=== PATIENT | female | born 1935 | race Caucasian/White ===

== ENCOUNTER 2017-12-24 14:11 | Outpatient (CLI) | payer MEDICARE | END 2017-12-24 14:12 | disposition home or self-care (01) | LOC: BICULT 14:11 | PROVIDERS: ATTEND Internal Medicine Geriatric Medicine | DX: R22.1 Localized swelling, mass and lump, neck (principal) | CPT/HCPCS: 76999; 93880 ==

== ENCOUNTER 2019-01-15 11:03 | Inpatient (IN) | payer MEDICARE, OTHER ==
[2019-01-15 12:02] LABS: #Lymphocytes 2.1 thou/uL (1.20-3.40); #Monocytes 0.6 thou/uL (0.11-0.59); #Neutrophils 9.8 thou/uL (1.40-6.50); %Basophils 0.4 % (0.0-1.0); %Eosinophils 0.2 % (0.0-10.0); %Lymphocytes 16.4 % (21.0-51.0); Hemoglobin 12.5 g/dL (12.0-16.0); Mean Corpuscular HGB CONC 33.4 g/dL (32.0-36.0); Mean Corpuscular Hemoglobin 29.9 pg (27.0-31.0); Mean Corpuscular Volume 89.7 fL (78.0-98.0); Mean Platelet Volume 7.1 fL (7.4-10.4); Platelet Count 228 thou/uL (130-400); Red Blood Cell (RBC) Count 4.17 mill/uL (4.20-5.40); White Blood Cell (WBC) Count 12.6 thou/uL (4.8-10.8)
[2019-01-15 12:19] LABS: ALT (SGPT) 19 U/L (8-55); AST (SGOT) 17 U/L (5-34); Albumin 4.2 g/dL (3.4-4.8); Alkaline Phosphatase 70 U/L (40-150); Anion Gap 13 mmol/L (10-20); BUN (Urea Nitrogen) 13 mg/dL (9.8-20.1); Bilirubin, Total 0.8 mg/dL (0.2-1.2); Calc. Creatinine Clearance 0 mL/min (70-130); Calcium 9.9 mg/dL (7.8-10.44); Carbon Dioxide 31 mmol/L (23-31); Chloride 99 mmol/L (98-107); Estimated GFR-MDRD 69; Glucose 119 mg/dL (83-110); Lipase 4 U/L (8-78); Potassium 3.7 mmol/L (3.5-5.1); Protein, Total 7.2 g/dL (6.0-8.3); Sodium 139 mmol/L (136-145)
[2019-01-15] MEDS ORDERED: Ondansetron PF 4 MG/2 ML Vial ONE (13:20)
[2019-01-15] MEDS ORDERED: Pantoprazole 40 MG VIAL ONE (13:20)
[2019-01-15] MEDS ORDERED: Morphine 4 MG/ML VIAL ONE (13:23)
[2019-01-15] MEDS ORDERED: ISOVUE-370 76%-LOCM 1 ML ONE (13:44)
--- NOTE | 2019-01-15 14:40 | CT ---
EXAM: CT Abdomen Pelvis W Con PROVIDED CLINICAL HISTORY: Generalized abdominal pain since last night. Nausea. COMPARISON: None available FINDINGS: There is minimal bibasilar atelectasis and/or scarring present. Vascular calcifications are seen in the abdominal aorta and involving the iliac arteries. Small hiatal hernia is present. The gallbladder is distended measuring 10.7 cm in length, and there is increased echogenic material s een layering dependently within the gallbladder lumen which may represent sludge and/or gallbladder c alculi. Tiny subcentimeter too small to characterize hypodense lesion is seen in the medial aspect of the rig ht hepatic lobe near the caudate lobe. Multiple colonic diverticula are seen throughout the colon predominantly involving the descending and sigmoid colon. There is a short segment of circumferential wall thickening involving the proximal tr ansverse colon with adjacent pericolonic inflammatory changes seen. A definitive diverticulum in this region is not visualized. However, given the multiple diverticuli seen throughout the remainder of t he colon distal to this region, findings could be related to diverticulitis. Focal colitis or possibl y neoplastic process are differential considerations. The spleen, fatty replaced pancreas, bilateral adrenal glands, kidneys, and partially distended urina ry bladder demonstrate a normal CT appearance. There is a bulbous appearance of the uterine fundus which could be within normal limits for the patie nt, but a uterine mass related to uterine fibroid cannot be entirely excluded. This should be better visualized with sonographic evaluation. No free fluid, fluid collection, or free intraperitoneal gas is seen in the abdomen or pelvis. A surg ical clip is seen in the right upper quadrant. Degenerative changes are seen in the spine, each sacroiliac joint, and pubic symphysis. IMPRESSION: 1. Short segment of circumferential wall thickening with adjacent pericolonic inflammatory changes in volving the proximal transverse colon. A definite diverticulum is not seen in this region to suggest diverticulitis, but this is a differential consideration. Focal colitis is a possibility. However, ne oplastic process should be excluded. GI consultation is recommended. 2. Bulbous appearance of the uterine fundus which could be related to uterine fibroid, but follow-up pelvic ultrasound is recommended. 3. Small hiatal hernia. 4. Distention of the gallbladder with increased density material in the gallbladder lumen likely rela nick to gallbladder sludge and/or gallbladder calculi. No intrahepatic or extrahepatic biliary duct di latation is seen. 5. Above findings discussed with Dr. Collier in the emergency Department on 01/15/2019 at 1436 hours.
[2019-01-15 15:07] LABS: Bilirubin Negative (Negative); Blood, Urine Negative (Negative); Clarity CLEAR (Clear); Glucose, Urine (Dipstick) Negative (Negative); Leukocyte Small (Negative); Nitrite Negative (Negative); Protein, Urine (Dipstick) Negative (Neg-Trace)
[2019-01-15 15:10] LABS: Bacteria/HPF None Seen HPF (None Seen); Hyaline Casts/LPF 0-3 HYALINE CAST LPF (0-3 Hyaline); Pathc Cast-AUWi Flag 0.95 (0-2.49)
[2019-01-15 15:25] LABS: Renal Epithelial None Seen HPF (0-3); Specific Gravity, Urine Greater than 1.060 (1.002-1.036); Transitional Epithelial 0-3 HPF (0-3)
[2019-01-15] MEDS ORDERED: Piperacillin/Tazobactam 3.375 GM VIAL ONE (15:48)
[2019-01-15] MEDS ORDERED: metroNIDAZOLE 500 MG/100 ML BAG ONE (15:48)
[2019-01-15 17:00] LABS: Lactic Acid 1.3 mmol/L (0.5-2.2)
[2019-01-15] MEDS ORDERED: Senokot S 8.6-50 MG TAB PO PRN (17:57)
--- NOTE | 2019-01-15 19:19 | ULT ---
GALLBLADDER ULTRASOUND: 01/15/19 HISTORY: Right upper quadrant pain. FINDINGS: The liver, pancreas and right kidney appears normal. There is a large shadowing mobile gallstone wit hout gallbladder wall thickening or pericholecystic fluid. The gallbladder is distended measuring 12 cm. No free fluid is noted in Ching's pouch. IMPRESSION: Cholelithiasis with hydrops of the gallbladder. POS: H
--- NOTE | 2019-01-15 19:39 | PRG ---
DATE OF SERVICE: This patient is an 83-year-old female, who presented with some abdominal pain. Her workup thus far includes white count of 12.6, urinalysis which is largely unimpressive, CT scan of the abdomen which revealed short segment of transverse colitis. She has a bulbous-appearing uterine fundus, which is likely fibroids, small hiatal hernia, distention of the gallbladder. Gallbladder ultrasound has been obtained in followup. She has received morphine, which has helped her pain significantly. She has also received Zosyn and Flagyl. The patient will be admitted to the hospital with apparent colitis and possible cholecystitis. Continue with pain management, antibiotics, fluids. Consult GI. The patient will likely need endoscopy at some point, but probably when she is a bit more stable. The case was discussed with Leticia Breen. Job ID: [id number]
[2019-01-15] MEDS: Sodium Chloride 0.9% 1,000 ML IV SCH (21:28)
[2019-01-15 21:30] VITALS: BMI 28.0
[2019-01-15] MEDS: Piperacillin/Tazobactam 3.375 GM in Sodium Chloride 0.9% 100 ML IVPB SCH (21:59)
[2019-01-15] MEDS: metroNIDAZOLE 500 MG in Premix Bag 1 BAG IVPB SCH (23:24)
--- NOTE | 2019-01-16 02:43 | HP ---
PRIMARY CARE PHYSICIAN: Dr. Jacobs. CHIEF COMPLAINT: Abdominal pain, nausea, and vomiting. HISTORY OF PRESENT ILLNESS: Ms. Elizondo is an 83-year-old female who reported to the emergency room after having some generalized abdominal pain starting last night. Reports nausea. Reports dry heaving and headache. Daughter reports that she is a little more wobbly than normal. Denies any diarrhea, fever, or constipation. She said she had a small bowel movement this morning. She said she ate well last night. Reports that she does have a surgical history of hiatal hernia repair. Reports upper gastric pain, although the pain is also diffuse. Denies any dysuria. Does have some rebound. The patient underwent abdomen and pelvis CT while in the emergency room with the impression of a short segment of circumferential wall thickening with adjacent pericolonic inflammatory changes involving the proximal transverse colon. A definite diverticulum is not seen in this region to suspect diverticulitis, but this is in the differential. Focal colitis is a possibility, however, neoplastic process should be excluded. GI consultation is recommended. Also, a bulbous appearance of the uterine fundus, which could be related to uterine fibroid. Followup pelvic ultrasound is recommended. Small hiatal hernia, next is distention of the gallbladder with increased density material in the gallbladder lumen, likely related to sludge or calculi. No intrahepatic or extrahepatic biliary duct dilatation is seen. The patient also has a white blood cell count of 12.6. Liver enzymes are unremarkable. Urine was positive for small amount of leukocyte esterase and white blood cell count. No bacteria was seen, nitrite negative. The patient was started on some Flagyl and Zosyn, was given some morphine as well, which improved pain significantly as well as Protonix, and the patient will be admitted to medical floor for further management. PAST MEDICAL HISTORY: History of diabetes, glaucoma, hypertension, osteoarthritis. PAST SURGICAL HISTORY: Includes surgery for detached retina; bilateral, bilateral cataract surgery, breast reduction, repair of hiatal hernia, orthopedic surgery to the left shoulder x2, right total knee replacement, tonsillectomy. PSYCHIATRIC HISTORY: None. SOCIAL HISTORY: The patient drinks socially about twice a month. Denies any drug use. Denies any smoking history. Lives at home with her daughter. ALLERGIES: NO KNOWN DRUG ALLERGIES. CURRENT MEDICATIONS: Listed in the [facility] system. 1. Lisinopril 10 mg once a day. 2. Lumigan 0.01% one drop each eye once a day at bedtime. 3. Alphagan P one drop two times a day into each eye. 4. Multivitamin 2 tablets once a day. 5. Magnesium 250 mg p.o. once a day. REVIEW OF SYSTEMS: The patient does report some kind of diffuse abdominal pain with some guarding. Does report some nausea. Denies any vomiting. Denies any constipation or diarrhea. Denies any fever, chills, chest pain, or cough. All other systems are reviewed and are negative unless mentioned in the HPI. PHYSICAL EXAMINATION: VITAL SIGNS: Blood pressure is 139/70, pulse is 72, respirations 16, temp is 99.3, pO2 sats are 95% on room air. CONSTITUTIONAL: The patient appears nontoxic, appears pain free, is alert and oriented to person, place, and time. HEENT: Head is atraumatic and normocephalic. Eyes; eyelids are normal to inspection. Pupils are equally round and reactive to light. ENT; mouth exam is normal. Mucous membranes are moist. NECK: Trachea is midline. Normal range of motion. RESPIRATORY/CHEST: Breath sounds are clear. No signs of respiratory distress. CARDIOVASCULAR: Heart rate, regular rate and rhythm. Heart sounds with systolic murmur 2/6. ABDOMEN: Tender diffusely, hyperactive bowel sounds, rebound, although abdomen is soft. BACK: Normal inspection. No tenderness. EXTREMITIES: Upper extremities; normal range of motion. Inspection is normal. Radial pulses are equal bilaterally. Lower extremities; normal range of motion. Sensation is intact. Posterior tibial pulses are equal bilateral bilaterally. Pedal pulses are equal bilaterally. NEUROLOGIC: The patient is alert and oriented to person, place, and time. Speech is normal. No focal motor or sensory deficits. SKIN: Warm, dry, normal in color. PERTINENT LABORATORY DATA: White blood cell count 12.6, hemoglobin 12.5, hematocrit is 37.4, and platelet count is 228. Chemistry; sodium is 139, potassium is 3.7, chloride is 99, carbon dioxide is 31, gap is 13, BUN is 13, creatinine is 0.79, estimated GFR is 69, glucose is 119. Lactic acid 2.2 and repeated 1.3. Calcium is 9.9. Liver enzymes are unremarkable. Lipase is 4. Urine specific gravity 0.1060, small amount of leukocyte esterase, 7 to 10 white blood cells, 4 to 6 squames, bacteria none. ASSESSMENT AND PLAN: 1. Colitis. We will continue the Zosyn and Flagyl, are started in the emergency room. Gentle IV hydration. Pain management, fluids. We have consulted GI. We will trend her lab values. 2. Hypertension. We will start her home medications. We will trend. We will add some p.r.n. medications as needed. 3. History of glaucoma. We will restart her home medication. 4. Deep venous thrombosis and gastrointestinal prophylaxis will be started. Job ID: [id number]
[2019-01-16] MEDS: Piperacillin/Tazobactam 3.375 GM in Sodium Chloride 0.9% 100 ML IVPB SCH ×2 (04:48→09:22)
[2019-01-16 05:11] LABS: #Eosinphils 0.1 thou/uL (0.0-0.7); #Lymphocytes 2.1 thou/uL (1.20-3.40); #Monocytes 0.4 thou/uL (0.11-0.59); #Neutrophils 6.1 thou/uL (1.40-6.50); %Basophils 0.4 % (0.0-1.0); %Lymphocytes 23.8 % (21.0-51.0); %Monocytes 4.4 % (0.0-10.0); %Neutrophils 70.3 % (42.0-75.0); Hemoglobin 10.8 g/dL (12.0-16.0); Mean Corpuscular HGB CONC 33.1 g/dL (32.0-36.0); Mean Corpuscular Hemoglobin 30.3 pg (27.0-31.0); Mean Corpuscular Volume 91.6 fL (78.0-98.0); Mean Platelet Volume 7.5 fL (7.4-10.4); Platelet Count 182 thou/uL (130-400); RBC Distribution Width 12.1 % (11.5-14.5); Red Blood Cell (RBC) Count 3.57 mill/uL (4.20-5.40); White Blood Cell (WBC) Count 8.7 thou/uL (4.8-10.8)
[2019-01-16] MEDS: Sodium Chloride 0.9% 1,000 ML IV SCH (05:32)
[2019-01-16] MEDS: metroNIDAZOLE 500 MG in Premix Bag 1 BAG IVPB SCH ×2 (05:32→14:44)
[2019-01-16 05:36] LABS: ALT (SGPT) 13 U/L (8-55); AST (SGOT) 14 U/L (5-34); Albumin 3.5 g/dL (3.4-4.8); Alkaline Phosphatase 62 U/L (40-150); Anion Gap 11 mmol/L (10-20); BUN (Urea Nitrogen) 11 mg/dL (9.8-20.1); Bilirubin, Total 0.9 mg/dL (0.2-1.2); Calc. Creatinine Clearance 70 mL/min (70-130); Calcium 8.5 mg/dL (7.8-10.44); Carbon Dioxide 27 mmol/L (23-31); Chloride 105 mmol/L (98-107); Estimated GFR-MDRD 74; Globulin 2.7 g/dL (2.4-3.5); Glucose 114 mg/dL (83-110); Potassium 3.6 mmol/L (3.5-5.1); Protein, Total 6.2 g/dL (6.0-8.3); Sodium 139 mmol/L (136-145)
[2019-01-16] MEDS: Enoxaparin Sodium 40 MG/0.4 ML SYRINGE SC SCH (09:22)
--- NOTE | 2019-01-16 09:59 | PDOC.PN ---
- Subjective Encounter Start Date: 01/16/19 Encounter Start Time: 09:57 Subjective: abd pain, nausea - Objective MAR Reviewed: Yes Vital Signs & Weight: Vital Signs (12 hours) Temp Pulse Resp BP Pulse Ox 01/16/19 08:00 95 01/16/19 07:41 98.8 F 66 18 104/62 95 01/16/19 05:00 98.3 F 65 18 124/74 95 01/16/19 01:00 98.0 F 70 18 128/70 Weight Weight 173 lb 15.115 oz I&O: 01/15/19 01/16/19 01/17/19 06:59 06:59 06:59 Intake Total 1000 Balance 1000 Result Diagrams: 01/16/19 04:24 01/16/19 04:24 Phys Exam - Physical Examination Neck: no JVD Respiratory: clear to auscultation bilateral Cardiovascular: RRR, no significant murmur Gastrointestinal: soft tender RUQ, pos BS Musculoskeletal: no edema Dx/Plan (1) Cholelithiasis and acute cholecystitis without obstruction Code(s): K80.00 - CALCULUS OF GALLBLADDER W ACUTE CHOLECYST W/O OBSTRUCTION Status: Acute (2) HTN (hypertension) Code(s): I10 - ESSENTIAL (PRIMARY) HYPERTENSION Status: Chronic Qualifiers: Hypertension type: essential hypertension Qualified Code(s): I10 - Essential (primary) hypertension (3) DM type 2 (diabetes mellitus, type 2) Status: Acute Qualifiers: Diabetes mellitus intermodal customer service insulin use: without intermodal customer service use Diabetes mellitus complication status: without complication Qualified Code(s): E11.9 - Type 2 diabetes mellitus without complications (4) Nausea & vomiting Code(s): R11.2 - NAUSEA WITH VOMITING, UNSPECIFIED Status: Acute - Plan NPO, iv fluids -: discussed with Dr Wall- cholecystectomy * .
[2019-01-16] MEDS ORDERED: Acetaminophen 500 MG TAB PO PRN (10:26)
[2019-01-16] MEDS ORDERED: traMADol HCl 50 MG TAB PO PRN ×2 (10:26)
[2019-01-16] MEDS ORDERED: Ibuprofen 600 MG TAB PO PRN (10:26)
[2019-01-16] MEDS ORDERED: Ketorolac Tromethamine 30 MG/ML VIAL IVP SCH (10:30)
[2019-01-16] MEDS ORDERED: Acetaminophen 1,000 MG in Premix Bag 1 BAG IVPB SCH (10:30)
--- NOTE | 2019-01-16 11:10 | HP ---
HISTORY OF PRESENT ILLNESS: Magda Elizondo is an 83-year-old female, lives in [place], recently moved from [place]. She is . She lives with her daughter. The patient had experienced upper abdominal pain, nausea and reported to the emergency room. CAT scan revealed changes consistent with colitis with a thickened colon possibly, but more importantly, she had a distended gallbladder with debris. Followup ultrasound revealed normal bile duct caliber and multiple gallstones. Her liver function tests are normal. Lipase is normal. White count is 12.6 on admission, 8.7 this morning and hemoglobin 10.8. I was called by Dr. Jeramie Ramirez to see her regarding her acute cholecystitis and cholelithiasis. ALLERGIES: NONE. SUBJECTIVE: Tobacco, none. Alcohol, occasional beer. MEDICATIONS: 1. Magnesium. 2. Eye drops. 3. Multivitamins. 4. Lisinopril 10 mg a day. PAST MEDICAL HISTORY: Diabetes, glaucoma, hypertension, and osteoarthritis. PAST SURGICAL HISTORY: She is up to date on her colonoscopy. She has had breast reduction, laparoscopic hiatal hernia repair, right total knee replacement, left shoulder surgery, and surgery for detached retina. REVIEW OF SYSTEMS: Ten-point noncontributory. FAMILY HISTORY: Noncontributory. PHYSICAL EXAMINATION: VITAL SIGNS: Height 5 foot 6, 173 pounds, 28 BMI. Temperature 98.8, pulse 66, and blood pressure 104/62. HEAD, EARS, EYES, NOSE, AND THROAT: Unremarkable. Sclerae are nonicteric. SKIN: Nonjaundiced. AXILLA, GROINS, AND NECK: Axilla, groins, and neck without lymphadenopathy. LUNGS: Clear to auscultation. CARDIAC: Regular rate and rhythm without murmur or gallop. ABDOMEN: Soft. Tenderness in right upper quadrant. Mild guarding. EXTREMITIES: Unremarkable. Good pedal pulses. ASSESSMENT AND PLAN: Cholecystitis, cholelithiasis. Recommend laparoscopic video cholecystectomy. Risks of infection, bleeding, visceral and biliary injury explained, risk of open procedure. She consents. Questions answered. Job ID: [id number]
[2019-01-16] MEDS ORDERED: Levofloxacin 500 mg/D5W 100 ml Premix Bag ONE (12:09)
[2019-01-16] MEDS ORDERED: Bupivacaine HCl 0.5%/Epinephrine 1:200,000/PF 30 ml Vial ONE (12:18)
[2019-01-16] MEDS ORDERED: Fentanyl 250 MCG/5 ML VIAL ONE (12:31)
[2019-01-16] MEDS ORDERED: Rocuronium Bromide 10 MG/ML (10ML VIAL) ONE (16:01)
[2019-01-16] MEDS ORDERED: Ondansetron PF 4 MG/2 ML Vial ONE (16:01)
[2019-01-16] MEDS ORDERED: Dexamethasone 20 MG/5 ML VIAL ONE (16:01)
[2019-01-16] MEDS ORDERED: PROPOFOL 200 MG/20 ML VIAL ONE (16:01)
[2019-01-16] MEDS: Brimonidine Tartrate 0.2% Ophth Soln 5 ml Bottle EA EYE SCH (20:56)
--- NOTE | 2019-01-16 20:57 | OP ---
DATE OF PROCEDURE: 01/16/2019 PREOPERATIVE DIAGNOSES: Acute cholecystitis, cholelithiasis, hydrops, gallbladder outlet obstruction. POSTOPERATIVE DIAGNOSES: Acute cholecystitis, cholelithiasis, hydrops, gallbladder outlet obstruction. PROCEDURE PERFORMED: Laparoscopic video cholecystectomy. ANESTHESIA: General, local 0.5% Marcaine with epinephrine 30 mL. DESCRIPTION OF PROCEDURE: The patient was taken to the operating room, where under general anesthesia, abdomen was prepared with ChloraPrep and draped in routine fashion. Local anesthetic 0.5% Marcaine with epinephrine was infiltrated in the skin and subcutaneous tissue about each port site. Supraumbilical incision was made (obesity). Pneumoperitoneum to 15 mmHg obtained with a Veress needle, replaced with a 5 port, video laparoscope inserted. Right lateral subxiphoid was incision made. An 11 port was placed. Right subcostal incision was made in midclavicular and anterior axillary lines, and 5 port was placed. Liver was normal. Gallbladder was distended and inflamed with duodenum. Omentum adherent. Gallbladder and fundus grasped at the cephalad. Omentum and duodenum were dissected off the gallbladder wall, grasping the infundibulum reflected laterally. Cystic artery and duct were dissected free carefully, clear. Critical view obtained. Cystic artery and duct double clipped, proximally divided. Gallbladder was dissected free from edematous attachments to the liver bed using cautery for hemostasis. Gallbladder and contents were removed, submitted to Pathology. Gallbladder full of sludge. Good hemostasis ensured with cautery. Irrigant and pneumoperitoneum were evacuated. All instruments were removed. All skin incisions were approximated with interrupted subdermal 4-0 Monocryl and [place] glue applied. Job ID: [id number]
[2019-01-16] MEDS ORDERED: Latanoprost 0.005% Ophth Soln 2.5 ml Bottle EA EYE SCH (21:00)
[2019-01-17 07:30] VITALS: BP 135/79; TEMP 98.4
[2019-01-17] MEDS: Enoxaparin Sodium 40 MG/0.4 ML SYRINGE SC SCH (07:53)
[2019-01-17] MEDS: Brimonidine Tartrate 0.2% Ophth Soln 5 ml Bottle EA EYE SCH (07:53)
[2019-01-17] MEDS ORDERED: Lisinopril 10 MG TAB PO SCH (09:00)
[2019-01-17] MEDS ORDERED: Magnesium Oxide 250 MG TAB PO SCH (09:00)
[2019-01-17] MEDS ORDERED: Multivit, Therapeutic 1 TAB PO SCH (09:00)
--- NOTE | 2019-01-17 10:33 | PDOC.EVN ---
Event Note - Event Note Event Note: DC SUMMARY #[id number]
--- NOTE | 2019-01-18 06:11 | DIS ---
DATE OF ADMISSION: 01/15/2019 DATE OF DISCHARGE: 01/17/2019 ADMITTING DIAGNOSES: Abdominal pain, discomfort, cholecystitis, nausea, vomiting, diabetes mellitus type 2, hypertension. DISCHARGE DIAGNOSES: Abdominal pain, discomfort, nausea, vomiting, cholecystitis, status post cholecystectomy, hypertension, diabetes mellitus, and hyperlipidemia. HOSPITAL COURSE: This is an 83-year-old female, admitted to Internal Medicine Team was evaluated, found to have hypertension, cholecystitis, abdominal pain, evaluated by General surgery given antibiotics, had her gallbladder removed. Postoperatively, patient was observed for 24 hours, following a diet, having bowel movements. No complaints. Discharge recommended by Surgery and Internal Medicine. The patient to follow up with surgery within 2 weeks for further management and care. PCP within 1 week for further management and care. DISPOSITION: Home. FOLLOWUP: Follow up with PCP, General Surgery within 1 to 2 weeks. MEDICATIONS: See MAR. ACTIVITY: As tolerated with assistance as needed. DIET: Low-fat, low-calorie, high-fiber diet. CONDITION: Stable. PROGNOSIS: Good. Case and plan discussed with the patient at length. She understood and agreed with this plan. Job ID: [id number]
== END 2019-01-17 10:52 | disposition home or self-care (01) | DRG 419 ==
LOC: ERS 11:03 → T4-A 15:04
PROVIDERS: ADMIT Internal Medicine; ATTEND Internal Medicine
PROC: 0FT44ZZ Resection of Gallbladder, Percutaneous Endoscopic Approach (ICD-10-PCS; principal; 2019-01-16)
DX: K80.10 Calculus of gallbladder with chronic cholecystitis without obstruction (principal); K52.9 Noninfective gastroenteritis and colitis, unspecified; E11.9 Type 2 diabetes mellitus without complications; I10 Essential (primary) hypertension; M19.90 Unspecified osteoarthritis, unspecified site; Z96.651 Presence of right artificial knee joint; Z79.899 Other long term (current) drug therapy
CPT/HCPCS: 36415; 74177; 76705; 80053; 81003; 81015; 83605; 83690; 85025; 87040; 88304; 96361; 96365; 96366; 96367; 96375; C9113; J0131; J0670; J1100; J1650; J1885; J1956; J2270; J2405; J2543; J2704; J3010; J3490

== ENCOUNTER 2021-02-03 09:52 | Emergency (ER) | payer MEDICARE, OTHER ==
[2021-02-03] MEDS ORDERED: Ketorolac Tromethamine 30 MG/ML VIAL ONE (10:49)
== END 2021-02-03 12:20 | disposition home or self-care (01) ==
LOC: ERS 09:52
DX: M10.9 Gout, unspecified (principal); L03.032 Cellulitis of left toe; Z79.899 Other long term (current) drug therapy; I10 Essential (primary) hypertension; M19.90 Unspecified osteoarthritis, unspecified site; M79.89 Other specified soft tissue disorders; M79.672 Pain in left foot
CPT/HCPCS: 96372; J1885

== ENCOUNTER 2021-05-06 13:14 | Emergency (ER) | payer MEDICARE, OTHER | END 2021-05-06 14:30 | disposition home or self-care (01) | LOC: ERS 13:14 | DX: M79.675 Pain in left toe(s) (principal); G62.9 Polyneuropathy, unspecified; R73.03 Prediabetes; M19.90 Unspecified osteoarthritis, unspecified site; M10.9 Gout, unspecified; Z79.82 Long term (current) use of aspirin; Z79.899 Other long term (current) drug therapy | CPT/HCPCS: 99283 ==

== ENCOUNTER 2022-11-07 10:26 | Inpatient (IN) | payer MEDICARE, OTHER ==
[2022-11-07] MEDS ORDERED: Fentanyl 100 MCG/2 ML VIAL ONE ×2 (11:04→15:40)
[2022-11-07] MEDS ORDERED: Morphine 4 MG/ML VIAL ONE (12:06)
[2022-11-07] MEDS ORDERED: Ketorolac Tromethamine 30 MG/ML VIAL ONE (12:06)
[2022-11-07] MEDS ORDERED: Ondansetron PF 4 MG/2 ML Vial ONE ×2 (12:06→16:54)
[2022-11-07 12:08] LABS: SARS-CoV-2 NAA Rapid Test Not Detected (NotDetected)
[2022-11-07] MEDS ORDERED: TETANUS, DIPHTHERIA TOX,ADULT (TDVAX) 0.5 ML VIAL IM ONE (12:27)
[2022-11-07] MEDS ORDERED: Morphine 4 MG/ML VIAL SLOW IVP PRN (12:27)
[2022-11-07] MEDS ORDERED: hydrALAZINE 20 MG/ML VIAL SLOW IVP PRN (12:27)
[2022-11-07] MEDS ORDERED: Ipratropium/Albuterol 3 ML NEB NEB PRN (12:27)
[2022-11-07] MEDS ORDERED: Ondansetron PF 4 MG/2 ML Vial IVP PRN (12:27)
[2022-11-07] MEDS ORDERED: Morphine 2 MG/ML VIAL SLOW IVP PRN (12:27)
[2022-11-07] MEDS ORDERED: Sodium Chloride 0.9% 1,000 ML IV SCH (12:30)
[2022-11-07 12:50] LABS: #Eosinphils 0.1 thou/uL (0.0-0.7); #Lymphocytes 1.7 thou/uL (1.20-3.40); #Monocytes 0.4 thou/uL (0.11-0.59); %Basophils 0.7 % (0.0-1.0); %Eosinophils 1.3 % (0.0-10.0); %Lymphocytes 23.4 % (21.0-51.0); %Monocytes 6.1 % (0.0-10.0); %Neutrophils 68.5 % (42.0-75.0); Hemoglobin 13.4 g/dL (12.0-16.0); Mean Corpuscular HGB CONC 32.6 g/dL (32.0-36.0); Mean Corpuscular Hemoglobin 30.5 pg (27.0-31.0); Mean Corpuscular Volume 93.6 fl (78.0-98.0); Mean Platelet Volume 8.4 fL (7.4-10.4); Platelet Count 212 10x3/uL (130-400); RBC Distribution Width 11.9 % (11.5-14.5); Red Blood Cell (RBC) Count 4.38 mill/uL (4.20-5.40); White Blood Cell (WBC) Count 7.2 10x3/uL (4.8-10.8)
[2022-11-07 12:57] LABS: Anion Gap 15 mmol/L (10-20); BUN (Urea Nitrogen) 19 mg/dL (9.8-20.1); Calc. Creatinine Clearance 0 mL/min (70-130); Calcium 9.5 mg/dL (7.8-10.44); Carbon Dioxide 21 mmol/L (23-31); Chloride 105 mmol/L (98-107); Estimated GFR 72; Glucose 147 mg/dL (83-110); Magnesium 1.7 mg/dL (1.6-2.6); Phosphorus 3.4 mg/dL (2.3-4.7); Potassium 4.1 mmol/L (3.5-5.1); Sodium 137 mmol/L (136-145)
[2022-11-07 14:00] LABS: PTT 27.7 sec (22.9-36.1)
[2022-11-07 14:01] LABS: INR-International Normal Ratio 1.1; Prothrombin Time 14.2 sec (12.0-14.7)
[2022-11-07] MEDS ORDERED: CEFAZOLIN 2 GM in Sodium Chloride 0.9% 100 ML IVPB SCH (14:15)
[2022-11-07 15:12] LABS: ALT (SGPT) 45 U/L (8-55); AST (SGOT) 61 U/L (5-34); Alkaline Phosphatase 66 U/L (40-110); Anion Gap 15 mmol/L (10-20); BUN (Urea Nitrogen) 19 mg/dL (9.8-20.1); Bilirubin, Total 0.5 mg/dL (0.2-1.2); Calc. Creatinine Clearance 0 mL/min (70-130); Calcium 9.2 mg/dL (7.8-10.44); Carbon Dioxide 23 mmol/L (23-31); Chloride 105 mmol/L (98-107); Estimated GFR 78; Globulin 3.3 g/dL (2.4-3.5); Glucose 115 mg/dL (83-110); Potassium 3.9 mmol/L (3.5-5.1); Protein, Total 7.3 g/dL (5.8-8.1); Sodium 139 mmol/L (136-145)
[2022-11-07] MEDS ORDERED: fentaNYL PF 100 MCG/2 ML SYRINGE ONE (15:49)
[2022-11-07] MEDS ORDERED: Sodium Chloride 0.9% 100 ML ONE (16:42)
[2022-11-07] MEDS ORDERED: CEFAZOLIN 2 GM VIAL ONE (16:42)
[2022-11-07] MEDS ORDERED: SUGAMMADEX SODIUM 200 MG/2 ML VIAL ONE (16:52)
[2022-11-07] MEDS ORDERED: Rocuronium Bromide 10 MG/ML (10ML VIAL) ONE (16:54)
[2022-11-07] MEDS ORDERED: Lidocaine 1% PF 5 ML VIAL ONE (16:54)
[2022-11-07] MEDS ORDERED: PROPOFOL 200 MG/20 ML VIAL ONE (16:54)
[2022-11-07] MEDS ORDERED: Dexamethasone 20 MG/5 ML VIAL ONE (16:54)
[2022-11-07] MEDS ORDERED: Ondansetron HCl/PF 4 MG/2 ML Vial IVP PRN (18:11)
[2022-11-07] MEDS: Acetaminophen/Codeine 30-300mg Tablet PO SCH (21:38)
[2022-11-07] MEDS: Senokot S 8.6-50 MG TAB PO SCH (21:38)
[2022-11-07] MEDS: Acetaminophen 325 MG TAB PO SCH (23:50)
[2022-11-08] MEDS: Acetaminophen 325 MG TAB PO SCH ×4 (01:45→14:49)
[2022-11-08] MEDS: Acetaminophen/Codeine 30-300mg Tablet PO SCH ×5 (01:46→17:50)
[2022-11-08] MEDS: CEFAZOLIN 2 GM in Sodium Chloride 0.9% 100 ML IVPB SCH ×2 (01:47→10:01)
[2022-11-08 03:47] VITALS: BMI 28.5
[2022-11-08 07:42] LABS: #Lymphocytes 1.2 thou/uL (1.20-3.40); #Monocytes 0.5 thou/uL (0.11-0.59); #Neutrophils 4.9 thou/uL (1.40-6.50); %Basophils 0.1 % (0.0-1.0); %Eosinophils 0.3 % (0.0-10.0); %Lymphocytes 18.1 % (21.0-51.0); %Monocytes 7.8 % (0.0-10.0); %Neutrophils 73.7 % (42.0-75.0); Hemoglobin 10.8 g/dL (12.0-16.0); Mean Corpuscular HGB CONC 32.9 g/dL (32.0-36.0); Mean Corpuscular Hemoglobin 31.3 pg (27.0-31.0); Mean Corpuscular Volume 95.2 fl (78.0-98.0); Mean Platelet Volume 7.1 fL (7.4-10.4); Platelet Count 162 10x3/uL (130-400); RBC Distribution Width 11.6 % (11.5-14.5); Red Blood Cell (RBC) Count 3.44 mill/uL (4.20-5.40); White Blood Cell (WBC) Count 6.7 10x3/uL (4.8-10.8)
[2022-11-08 08:01] LABS: Anion Gap 14 mmol/L (10-20); BUN (Urea Nitrogen) 12 mg/dL (9.8-20.1); Calc. Creatinine Clearance 72 mL/min (70-130); Calcium 8.2 mg/dL (7.8-10.44); Carbon Dioxide 22 mmol/L (23-31); Chloride 105 mmol/L (98-107); Estimated GFR 84; Glucose 138 mg/dL (83-110); Potassium 3.8 mmol/L (3.5-5.1); Sodium 137 mmol/L (136-145)
[2022-11-08] MEDS ORDERED: Polyethylene Glycol 3350 17 GM Packet PO SCH (09:00)
[2022-11-08] MEDS: Aspirin 81 mg Enteric Coated Tablet PO SCH ×2 (10:03→21:19)
[2022-11-08] MEDS: Senokot S 8.6-50 MG TAB PO SCH (11:15)
[2022-11-08] MEDS ORDERED: Ibuprofen 200 MG TAB PO PRN (15:23)
[2022-11-08] MEDS ORDERED: Cyclobenzaprine 10 MG TAB PO PRN (15:25)
[2022-11-08] MEDS ORDERED: Latanoprost 0.005% Ophth Soln 2.5 ml Bottle EA EYE SCH (21:00)
[2022-11-08] MEDS: DorzolamidE/Timolol 2%/0.5% Ophth Soln 10 ml Bottle EA EYE SCH (21:19)
[2022-11-09] MEDS: Acetaminophen/Codeine 30-300mg Tablet PO SCH ×3 (00:41→12:57)
[2022-11-09] MEDS ORDERED: Magnesium Oxide 250 MG TAB PO SCH (09:00)
[2022-11-09] MEDS ORDERED: Lisinopril 10 MG TAB PO SCH (09:00)
[2022-11-09] MEDS: DorzolamidE/Timolol 2%/0.5% Ophth Soln 10 ml Bottle EA EYE SCH (09:33)
[2022-11-09] MEDS: Aspirin 81 mg Enteric Coated Tablet PO SCH (09:33)
[2022-11-09] MEDS ORDERED: Non-Formulary Item 1 EACH (Prednisolone Acetate/Pf [Prednisolone Acet 1% Eye Drop] 5 ML D R EYE ONE (10:35)
[2022-11-09] MEDS ORDERED: prednisoLONE Acet 0.12% Ophth Soln 5 ml Bottle R EYE SCH (12:30)
[2022-11-09 13:32] VITALS: TEMP 98.4
[2022-11-09 16:18] VITALS: BP 132/72
== END 2022-11-09 18:10 | DRG 522 ==
LOC: ERS 10:26 → SDC/OP 13:00 → SURG A 19:49
PROVIDERS: ADMIT Surgery; ATTEND Surgery
PROC: 0SRR01A Replacement of Right Hip Joint, Femoral Surface with Metal Synthetic Substitute, Uncemented, Open Approach (ICD-10-PCS; principal; 2022-11-07)
DX: S72.001A Fracture of unspecified part of neck of right femur, initial encounter for closed fracture (principal); D62 Acute posthemorrhagic anemia; Z20.822 Contact with and (suspected) exposure to COVID-19; I10 Essential (primary) hypertension; M19.90 Unspecified osteoarthritis, unspecified site; M10.9 Gout, unspecified; Z96.653 Presence of artificial knee joint, bilateral; E11.9 Type 2 diabetes mellitus without complications; Z96.612 Presence of left artificial shoulder joint; Z90.89 Acquired absence of other organs; Z98.890 Other specified postprocedural states; Z79.899 Other long term (current) drug therapy; Z79.82 Long term (current) use of aspirin
CPT/HCPCS: 36415; 36416; 70450; 71045; 72125; 72170; 80048; 83735; 84100; 85025; 85610; 85730; 86850; 86900; 86901; 86922; 93005; 96374; 96375; C1713; C1776; G0390; J1100; J1885; J2270; J2272; J2405; J2704; J3010; J3490; J7050; U0002

== ENCOUNTER 2023-02-15 09:20 | Outpatient (CLI) | payer MEDICARE, OTHER | END 2023-02-15 09:21 | disposition home or self-care (01) | LOC: NM 09:20 | PROVIDERS: ATTEND Family Medicine Sports Medicine | DX: G89.11 Acute pain due to trauma (principal) | CPT/HCPCS: 78315; A9503 ==